=== PATIENT | male | born 2000 | race Caucasian/White ===

== ENCOUNTER 2022-09-12 09:46 | Emergency (ER) | payer OTHER ==
[~2022-09-12] VITALS: Ht 185.4 cm; Wt 78.4 kg
[2022-09-12] MEDS ORDERED: ONDANSETRON 4MG ORAL DISINTEGRATING TAB PO ONE (10:55)
[2022-09-12] MEDS ORDERED: ACETAMINOPHEN 325 MG TAB PO ONE (11:20)
[2022-09-12] MEDS ORDERED: IBUP-1022 PO (17:16)
[2022-09-12 17:29] VITALS: BP 123/64; TEMP 98; O2SAT 99
== END 2022-09-12 17:31 | disposition home or self-care (01) ==
LOC: M ED 09:46
DX: S00.83XA Contusion of other part of head, initial encounter (principal); S06.0X0A Concussion without loss of consciousness, initial encounter; Z88.0 Allergy status to penicillin; Z79.1 Long term (current) use of non-steroidal anti-inflammatories (NSAID)

== ENCOUNTER 2022-09-14 16:56 | Emergency (ER) | payer OTHER ==
[~2022-09-14] VITALS: Ht 182.9 cm; Wt 79.6 kg
[~2022-09-14 16:56] MED LIST: IBUP-1022 PO
[2022-09-14 21:41] LABS: BASO # 0.1 10^3/uL (0.0-0.2); BASO % 0.8 % (0.0-1.0); EOS # 0.3 10^3/uL (0.0-0.5); EOS % 3.2 % (0.0-3.0); HEMATOCRIT 48.3 % (42.0-52.0); HEMOGLOBIN 15.7 g/dl (13.5-17.5); LYMPH # 1.9 10^3/uL (1.5-5.0); LYMPH % 24.2 % (24.0-44.0); MEAN CORPUSCULAR HEMOGLOBIN 28.8 pg (27.0-33.0); MEAN CORPUSCULAR HGB CONC 32.5 g/dl (32.0-36.5); MEAN CORPUSCULAR VOLUME 88.5 fl (80.0-96.0); MONO # 0.5 10^3/uL (0.0-0.8); MONO % 5.9 % (2.0-8.0); NEUTROPHILS # 5.1 10^3/uL (1.5-8.5); NEUTROPHILS % 65.6 % (36.0-66.0); PLATELET COUNT, AUTOMATED 230 10^3/uL (150-450); RED BLOOD COUNT 5.46 10^6/uL (4.30-6.10); WHITE BLOOD COUNT 7.8 10^3/uL (4.0-10.0)
[2022-09-14 22:08] LABS: ALBUMIN 4.9 G/DL (3.2-5.2); BILIRUBIN,DIRECT 0.2 MG/DL (<0.4); BILIRUBIN,TOTAL 0.6 MG/DL (0.3-1.2); TOTAL PROTEIN 7.4 G/DL (5.7-8.2)
[2022-09-14 22:11] LABS: INR 0.93; PROTHROMBIN TIME 12.7 SECONDS (12.5-14.5)
[2022-09-14 22:48] VITALS: BP 120/61; TEMP 97.7; O2SAT 100
== END 2022-09-14 22:48 | disposition home or self-care (01) ==
LOC: M ED 16:56
DX: S00.81XA Abrasion of other part of head, initial encounter (principal); S05.12XA Contusion of eyeball and orbital tissues, left eye, initial encounter; Y99.9 Unspecified external cause status